=== PATIENT | female | born 1990 | race Two or more races ===

== ENCOUNTER 2016-09-07 02:34 | Emergency (ER) | payer OTHER ==
[~2016-09-07] VITALS: Ht 172.7 cm; Wt 115.0 kg
[~2016-09-07 02:34] MED LIST: BENZ100 PO; OSEL75 PO; PARAIUD
[2016-09-07 02:36] VITALS: BP 160/90; PULSE 98; RESP 16; TEMP 98.4; O2SAT 99
--- NOTE | 2016-09-07 03:24 | PD ---
HPI Chief Complaint: Back/ Neck Pain or Injury Time Seen by Provider: 03:21 Travel History International Travel<30 days: No Contact w/Intl Traveler<30days: No Traveled to known affect area: No History of Present Illness HPI Patient comes in complaining of right flank pain ongoing for approximately 2 weeks. Patient reports she's noticed her urine being darker. Pain is worse certain movement and deep inspiration. Patient reports Tylenol helps alleviate symptoms to where she can sleep at night. Patient denies any known trauma, chest pain, shortness of breath, fevers, rash, , abdominal pain, or pain with eating. Pain radiates laterally to the right. PFSH Past Medical History Hx Anticoagulant Therapy: No Anemia: Yes Anxiety: Yes Depression: Yes Tetanus Vaccination: < 5 Years Influenza Vaccination: No ?: Not LMP: 08/28/2016 : 3 Para: 2 Miscarriage: 1 Dilation and Curettage (D&C): Yes Past Surgical History Appendectomy: Yes (2013) Section: Yes Gynecologic Surgery: Yes Social History Alcohol Use: No Tobacco Use: Yes (4 per day) Substance Use: No Allergies-Medications (Allergen,Severity, Reaction): Coded Allergies: Cephalexin (Verified Allergy, Intermediate, Itching, 09/07/16) Reported Meds & Prescriptions Reported Meds & Active Scripts Active Flexeril (Cyclobenzaprine HCl) 10 Mg Tab 10 Mg PO Q8HR PRN Naprosyn (Naproxen) 500 Mg Tab 500 Mg PO Q12HR PRN Review of Systems Except as stated in HPI: all other systems reviewed are Neg Physical Exam Narrative GENERAL: Well-developed, overly nourished, in no acute distress, and non-ill appearing. SKIN: Focused skin assessment warm and dry. HEAD: Atraumatic. Normocephalic. EYES: Pupils equal and round. EOMI. No scleral icterus. No injection or drainage. ENT: No nasal bleeding or discharge. Mucous membranes pink and moist. NECK: Trachea midline. Supple. No nuclear rigidity. CARDIOVASCULAR: Regular rate and rhythm. No murmur appreciated. RESPIRATORY: No accessory muscle use. No respiratory distress. Clear to auscultation. Breath sounds equal bilaterally. GASTROINTESTINAL: Abdomen soft, non-tender, nondistended. Hepatic and splenic margins not palpable. No pulsatile mass. MUSCULOSKELETAL: No obvious deformities. No clubbing. No cyanosis. No edema. Full range of motion. Patient reports tenderness to right posterior thoracic cavity. NEUROLOGICAL: Awake and alert. No obvious cranial nerve deficits. Motor grossly within normal limits. Normal speech. PSYCHIATRIC: Appropriate mood and affect; insight and judgment normal. Data Data Last Documented VS Vital Signs Date Time Temp Pulse Resp B/P Pulse Ox O2 Delivery O2 Flow Rate FiO2 09/07/16 02:56 20 09/07/16 02:36 98.4 98 160/90 99 Orders Urinalysis - C+S If Indicated (09/07/16 03:20) Chest, Single Ap (09/07/16 ) Labs Laboratory Tests Test 09/07/16 03:20 Urine Color YELLOW Urine Turbidity CLEAR Urine pH 6.5 Urine Specific [place] 1.014 Urine Protein NEG mg/dL Urine Glucose (UA) NEG mg/dL Urine Ketones NEG mg/dL Urine Occult Blood NEG Urine Nitrite NEG Urine Bilirubin NEG Urine Urobilinogen LESS THAN 2.0 MG/DL Urine Leukocyte Esterase NEG Urine RBC 2 /hpf Urine WBC 1 /hpf Urine Squamous Epithelial <1 /hpf Cells Urine Amorphous Sediment RARE Microscopic Urinalysis Comment CULT NOT INDICATED MDM Medical Decision Making Medical Screen Exam Complete: Yes Emergency Medical Condition: Yes Interpretation(s) Chest x-ray read by radiologist shows: Normal examination for a patient of this age. Differential Diagnosis UTI, pneumonia, pneumothorax, musculoskeletal pain, other Narrative Course The patient presented complaining of back pain. There was no history of recent fall or trauma. There was no evidence to support genitourinary etiology. There is also no evidence to suggest vascular pathology such as AAA dissection. No fevers or other evidence to suspect infectious processes, abscess, osteomyelitis etc. The patients neurological exam is normal with normal motor and sensory. There is no saddle paresthesias reported and no bowel or bladder incontinence or retention. I suspect the pain is mechanical in nature. Chest x- ray and urinalysis are both negative for infectious or acute process. Clinical suspicion, plan of care and management was discussed with the patient. The patient was instructed to follow up with their health care provider. The patient was also instructed to return if the pain worsened, changed, or developed weakness or bowel or bladder trouble. The patient agreed with plan. Patient in no obvious distress upon re-evaluation. All pertinent laboratory/ Radiology result(s) discussed with patient. Patient was asked if they wanted to speak to my attending, which the patient did not wish to do at this time. Any questions/concerns in reference to patient diagnosis/condition discussed and clarified prior to patient's discharge. Reinforced sheer importance of close follow up with patient's primary physician or primary care clinic. Instructed patient to return to ED immediately, if symptoms return/worsen. Pt showed understanding of above instructions. Further instructions and recommendations were detailed in discharge paperwork. Pt ambulated without difficulty out of ED at discharge. Diagnosis Primary Impression: Musculoskeletal back pain Patient Instructions: General Instructions, Musculoskeletal Pain (ED) Additional Instructions: Follow-up with your primary care physician in 3-5 days for reevaluation. Take all medication as prescribed. Return to the emergency department if symptoms get worse. Med/Other Pt SpecificInfo: Prescription(s) given Scripts Cyclobenzaprine (Flexeril)10 Mg Tab10 Mg PO Q8HR PRN (MUSCLE PAIN) #14 TAB Ref 0 Prov:Gifty Michael MD 09/07/16 Naproxen (Naprosyn)500 Mg Neo675 Mg PO Q12HR PRN (PAIN SCALE 1 TO 10) #14 TAB Ref 0 Prov:Gifty Michael MD 09/07/16 Disposition: 01 DISCHARGE HOME Condition: Stable Roldan Barry Sep 07, 2016 03:23
--- NOTE | 2016-09-07 03:50 | RADRPT ---
EXAM DATE/TIME: 09/07/2016 03:49 [facility] COMPARISON: No previous studies available for comparison. INDICATIONS : Right upper chest pain. MEDICAL HISTORY : None. SURGICAL HISTORY : None. ENCOUNTER: Initial ACUITY: 1 day PAIN SCORE: 5/10 LOCATION: Right upper chest FINDINGS: A single view of the chest demonstrates the lungs to be symmetrically aerated without evidence of mas s, infiltrate or effusion. The cardiomediastinal contours are unremarkable. Osseous structures are intact. CONCLUSION: Normal examination for a patient of this age. Conor Rodriguez MD on September 07, 2016 at 3:48 Board Certified Radiologist. This report was verified electronically.
[2016-09-07 04:10] LABS: BLOOD, URINE NEG (NEG); COMMENT (UR) CULT NOT INDICATED; CULTURE IF INDICATED CULT NOT INDICATED; GLUCOSE,URINE NEG (NEG); KETONE, URINE NEG (NEG); NITRITE,URINE NEG (NEG); PH, URINE 6.5 (5.0-8.5); SQUAMOUS EPITHELIAL CELL URINE <1 /hpf (0-5); URINE COLOR YELLOW (YELLW/STRAW)
[2016-09-07] MEDS ORDERED: NAPR500 PO (04:18)
[2016-09-07] MEDS ORDERED: CYCL1TAB29 PO (04:18)
== END 2016-09-07 04:23 | disposition home or self-care (01) ==
LOC: NEPD 02:34
DX: M54.9 Dorsalgia, unspecified (principal); D64.9 Anemia, unspecified; F41.9 Anxiety disorder, unspecified; F32.9 Major depressive disorder, single episode, unspecified; Z79.899 Other long term (current) drug therapy; Z72.0 Tobacco use
CPT/HCPCS: 71010; 81001; 99284

== ENCOUNTER 2016-11-10 18:36 | Emergency (ER) | payer OTHER ==
[~2016-11-10] VITALS: Ht 172.7 cm; Wt 114.0 kg
[~2016-11-10 18:36] MED LIST changes: -BENZ100 PO; +CYCL1TAB29 PO; +NAPR500 PO; -OSEL75 PO; -PARAIUD
[2016-11-10 18:37] VITALS: BP 134/85; PULSE 102; RESP 20; TEMP 98.9; O2SAT 98
--- NOTE | 2016-11-10 19:07 | PD ---
Physical Exam Date Seen by Provider: Nov 10, 2016 Time Seen by Provider: 19:06 Narrative 26-year-old white female presents to the department with a one-week history of cough, congestion, diarrhea, myalgias, arthralgias and general malaise. Patient reports bodyaches but she has not reported any fever. No urinary symptoms. Symptoms are moderate. Vital signs reviewed. Awaiting bed placement. Data Data Last Documented VS Vital Signs Date Time Temp Pulse Resp B/P (MAP) Pulse Ox O2 Delivery O2 Flow Rate FiO2 11/10/16 18:37 98.9 102 20 134/85 (101) 98 Room Air [facility] Medical Record Reviewed: No Supervised Visit with CHERELLE: Lefty Navarro Nov 10, 2016 19:07
[2016-11-10] MEDS ORDERED: SODIUM CHLOR 0.9% 1000 ML INJ 1,000 ML IV SCH (20:34)
--- NOTE | 2016-11-10 20:35 | PD ---
HPI Chief Complaint: GI Complaint Time Seen by Provider: 20:29 Travel History International Travel<30 days: No Contact w/Intl Traveler<30days: No Traveled to known affect area: No History of Present Illness HPI Patient is a 26-year-old female presents emergency department with cough congestion runny nose and body aches for the past 3-4 days. 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 She wanted to be checked out for this. She states that she's been taking some Tylenol tolerating good by mouth fluid at home. Denies any chest pain abdominal pain nausea vomiting or shortness of breath. States symptoms are moderate gradually worsening no alleviating or exacerbating symptoms. PFSH Past Medical History Hx Anticoagulant Therapy: No Anemia: Yes Anxiety: Yes Depression: Yes ?: Not : 3 Para: 2 Miscarriage: 1 Dilation and Curettage (D&C): Yes Past Surgical History Appendectomy: Yes (2013) Section: Yes Gynecologic Surgery: Yes Social History Alcohol Use: No Tobacco Use: Yes (4 per day) Substance Use: No Allergies-Medications (Allergen,Severity, Reaction): Coded Allergies: cephalexin (Unverified Allergy, Intermediate, Itching, 11/10/16) Reported Meds & Prescriptions Reported Meds & Active Scripts Active No Active Prescriptions or Reported Medications Review of Systems Except as stated in HPI: all other systems reviewed are Neg Physical Exam Narrative GENERAL: Well-developed well-nourished, morbidly obese in no obvious distress. SKIN: Focused skin assessment warm/dry. HEAD: Atraumatic. Normocephalic. EYES: Pupils equal and round. No scleral icterus. No injection or drainage. ENT: No nasal bleeding or discharge. Mucous membranes pink and moist. TMs clear bilaterally, oropharynx mildly erythematous. Tonsil small, non- erythematous no discharge. NECK: Trachea midline. No JVD. CARDIOVASCULAR: Regular rate and rhythm. No murmur appreciated. RESPIRATORY: No accessory muscle use. Clear to auscultation. Breath sounds equal bilaterally. GASTROINTESTINAL: Abdomen soft, non-tender, nondistended. Hepatic and splenic margins not palpable. MUSCULOSKELETAL: No obvious deformities. No clubbing. No cyanosis. No edema. NEUROLOGICAL: Awake and alert. No obvious cranial nerve deficits. Motor grossly within normal limits. Normal speech. PSYCHIATRIC: Appropriate mood and affect; insight and judgment normal. Data Data Last Documented VS Vital Signs Date Time Temp Pulse Resp B/P (MAP) Pulse Ox O2 Delivery O2 Flow Rate FiO2 11/10/16 22:46 11/10/16 20:43 99 Room Air 11/10/16 18:37 98.9 102 20 Orders Orders Complete Blood Count With Diff (11/10/16 20:34) Comprehensive Metabolic Panel (11/10/16 20:34) Urinalysis - C+S If Indicated (11/10/16 20:34) Iv Access Insert/Monitor (11/10/16 20:34) Ecg Monitoring (11/10/16 20:34) Oximetry (11/10/16 20:34) Sodium Chlor 0.9% 1000 Ml Inj (Ns 1000 M (11/10/16 20:34) Sodium Chloride 0.9% Flush (Ns Flush) (11/10/16 20:45) Ketorolac Inj (Toradol Inj) (11/10/16 20:45) Ed Urine Pregnancytest Poc (11/10/16 20:34) Chest, Pa & Lat (11/10/16 ) Influenzae A/B Antigen (11/10/16 20:50) Labs Laboratory Tests Test 11/10/16 20:50 White Blood Count 9.3 TH/MM3 Red Blood Count 4.98 MIL/MM3 Hemoglobin 11.1 GM/DL Hematocrit 35.5 % Mean Corpuscular Volume 71.4 FL Mean Corpuscular Hemoglobin 22.3 PG Mean Corpuscular Hemoglobin Concent 31.3 % Red Cell Distribution Width 16.6 % Platelet Count 284 TH/MM3 Mean Platelet Volume 8.3 FL Neutrophils (%) (Auto) 60.6 % Lymphocytes (%) (Auto) 29.3 % Monocytes (%) (Auto) 7.4 % Eosinophils (%) (Auto) 2.5 % Basophils (%) (Auto) 0.2 % Neutrophils # (Auto) 5.7 TH/MM3 Lymphocytes # (Auto) 2.7 TH/MM3 Monocytes # (Auto) 0.7 TH/MM3 Eosinophils # (Auto) 0.2 TH/MM3 Basophils # (Auto) 0.0 TH/MM3 CBC Comment DIFF FINAL Differential Comment Urine Color YELLOW Urine Turbidity CLEAR Urine pH 5.5 Urine Specific [place] 1.018 Urine Protein NEG mg/dL Urine Glucose (UA) NEG mg/dL Urine Ketones NEG mg/dL Urine Occult Blood MOD Urine Nitrite NEG Urine Bilirubin NEG Urine Urobilinogen LESS THAN 2.0 MG/DL Urine Leukocyte Esterase NEG Urine RBC 3 /hpf Urine WBC LESS THAN 1 /hpf Urine Squamous Epithelial Cells 1 /hpf Microscopic Urinalysis Comment CULT NOT INDICATED Blood Urea Nitrogen 9 MG/DL Creatinine 0.64 MG/DL Random Glucose 89 MG/DL Total Protein 7.5 GM/DL Albumin 3.5 GM/DL Calcium Level 8.9 MG/DL Alkaline Phosphatase 117 U/L Aspartate Amino Transf (AST/SGOT) 17 U/L Alanine Aminotransferase (ALT/SGPT) 35 U/L Total Bilirubin 0.1 MG/DL Sodium Level 138 MEQ/L Potassium Level 3.9 MEQ/L Chloride Level 106 MEQ/L Carbon Dioxide Level 27.2 MEQ/L Anion Gap 5 MEQ/L Estimat Glomerular Filtration Rate 113 ML/MIN MDM Medical Decision Making Medical Screen Exam Complete: Yes Emergency Medical Condition: Yes Differential Diagnosis URI, pneumonia, flu. Narrative Course Patient roomed emergency department, chest x-ray negative, flu test negative, basic labs sent to risk stratify for pneumonia which the patient does not have. They're reassuring. She is stable for discharge. Discussed symptomatic management and return to ED criteria. Diagnosis Primary Impression: URI (upper respiratory infection) Qualified Codes: J06.9 - Acute upper respiratory infection, unspecified; B97.89 - Other viral agents as the cause of diseases classified elsewhere Scripts No Active Prescriptions or Reported Meds Disposition: 01 DISCHARGE HOME Condition: Stable Abbe Macdonald MD Nov 10, 2016 20:35
[2016-11-10 20:43] VITALS: O2SAT 99
[2016-11-10] MEDS ORDERED: SODIUM CHLORIDE 0.9% FLUSH 10 ML FLUSH IV FLUSH PRN (20:45)
[2016-11-10] MEDS ORDERED: KETOROLAC TROMETHAMINE 30 MG/ML (IVP) VIAL IVP ONE (20:45)
[2016-11-10 21:04] LABS: BLOOD, URINE MOD (NEG); COMMENT (UR) CULT NOT INDICATED; CULTURE IF INDICATED CULT NOT INDICATED; GLUCOSE,URINE NEG (NEG); KETONE, URINE NEG (NEG); NITRITE,URINE NEG (NEG); PH, URINE 5.5 (5.0-8.5); SQUAMOUS EPITHELIAL CELL URINE 1 /hpf (0-5); URINE COLOR YELLOW (YELLW/STRAW)
[2016-11-10 21:18] LABS: ANION GAP 5 MEQ/L (5-15); BICARBONATE 27.2 MEQ/L (21.0-32.0); BLOOD UREA NITROGEN 9 MG/DL (7-18); CHLORIDE 106 MEQ/L (98-107); GLOMERULAR FILTRATION RATE 113 ML/MIN (>89); POTASSIUM 3.9 MEQ/L (3.5-5.1); SODIUM (NA) 138 MEQ/L (136-145)
[2016-11-10 21:20] LABS: ALT (GPT) 35 U/L (10-53); AST (GOT) 17 U/L (15-37)
[2016-11-10 21:22] LABS: ALKALINE PHOSPHATASE 117 U/L (45-117); AUTOMATED NEUTROPHIL # 5.7 TH/MM3 (1.8-7.7); BASOPHIL % 0.2 % (0.0-2.0); EOSINOPHIL # 0.2 TH/MM3 (0-0.4); EOSINOPHIL % 2.5 % (0.0-4.0); HEMATOCRIT 35.5 % (35.0-46.0); HEMO FLAGS DIFF FINAL; LYMPH % 29.3 % (9.0-44.0); LYMPHOCYTE # 2.7 TH/MM3 (1.0-4.8); MEAN CELL VOLUME 71.4 FL (80.0-100.0); MEAN CORPUSCULAR HEMOGLOBIN 22.3 PG (27.0-34.0); MEAN CORPUSCULAR HGB CONC 31.3 % (32.0-36.0); MONO % 7.4 % (0.0-8.0); NEUT % 60.6 % (16.0-70.0); PLATELET COUNT 284 TH/MM3 (150-450); RED BLOOD COUNT 4.98 MIL/MM3 (4.00-5.30); RED CELL DISTRIBUTION WIDTH 16.6 % (11.6-17.2); TOTAL BILIRUBIN ADULT 0.1 MG/DL (0.2-1.0); WHITE BLOOD COUNT 9.3 TH/MM3 (4.0-11.0)
--- NOTE | 2016-11-10 21:24 | RADRPT ---
EXAM DATE/TIME: 11/10/2016 21:00 [facility] COMPARISON: No previous studies available for comparison. INDICATIONS : Chest pain and cough for 4 days. MEDICAL HISTORY : None. SURGICAL HISTORY : None. ENCOUNTER: Initial ACUITY: 4 - 6 days PAIN SCORE: 5/10 LOCATION: Bilateral chest FINDINGS: PA and lateral views of the chest demonstrate the lungs to be symmetrically aerated without evidence of mass, infiltrate or effusion. The cardiomediastinal contours are unremarkable. Osseous structure s are intact. CONCLUSION: No acute disease. Abbe He MD on November 10, 2016 at 21:22 Board Certified Radiologist. This report was verified electronically.
== END 2016-11-10 23:08 | disposition home or self-care (01) ==
LOC: NEPD 18:36
DX: J06.9 Acute upper respiratory infection, unspecified (principal); B97.89 Other viral agents as the cause of diseases classified elsewhere; F17.200 Nicotine dependence, unspecified, uncomplicated
CPT/HCPCS: 71020; 80053; 81001; 84703; 85025; 87804; 96361; 96374; 99284; J1885; J7030